=== PATIENT | male | born 1945 | race Caucasian/White ===

== ENCOUNTER 2021-10-19 12:58 | Emergency (ER) | payer MEDICARE, BC, SELFPAY ==
--- NOTE | 2021-10-19 14:07 | ED.GENADULT ---
HPI - General Adult General Chief complaint: Weakness Stated complaint: Vomitting,weakness,cough,headache Time Seen by Provider: 10/19/21 13:59 History of Present Illness HPI narrative: This 76-year-old male comes in with weakness, nausea, vomiting, and diarrhea. These symptoms started this morning but he states that he has not been feeling right over the past week or so. He states that he does have an occasional cough and that has triggered some vomiting at times. He did have some chills this morning but his temperature was measured and it was normal. He has decreased appetite over these past couple days also. Related Data Previous Rx's Medication Instructions Recorded amlodipine 5 mg tablet 5 mg PO QDAY Hypertension #90 tabs 09/18/21 levofloxacin 500 mg tablet 500 mg PO DAILY 10 days #10 tabs 10/19/21 ondansetron 4 mg disintegrating 4 mg PO Q6-8H PRN nausea and 10/19/21 tablet vomiting #14 tabs Allergies Allergy/AdvReac Type Severity Reaction Status Date / Time No Known Drug Allergies Allergy Verified 10/19/21 11:05 Review of Systems Status of ROS: Reports: 10 or more systems reviewed and unremarkable except as noted in History and below Narrative: Constitutional: No fevers, no weight gain or loss. Eyes: No discharge. No vision changes. HENT: No congestion, no sore throat, no ear pain. Cardiovascular: No chest pain, no palpitations. Respiratory: No shortness of breath, no wheezes, no cough. Gastrointestinal: No abdominal pain. Vomiting and diarrhea. Genitourinary: No dysuria, no hematuria. Musculoskeletal: Normal range of motion. Skin: No rashes, no pruritis. Neurological: No dizziness, sensory change, speech change. Generalized weakness. No unilateral weakness. Endo/Heme/Allergies: No bruising or bleeding. No polydipsia. Pysch: no suicidality, no anxiety, no insomnia. All other systems reviewed and are negative. [facility] Medical History (Updated 10/19/21 @ 18:28 by Quinton Sharma MD) Chest pain Hypertension Surgical History (Updated 10/19/21 @ 11:05 by Larry Gutierrez) History of cholecystectomy (11/03/09) History of tonsillectomy (11/03/09) Social History Smoking Status: Never smoker Do you use any of these nicotine containing products: None Second hand tobacco smoke exposure: No How often do you have a drink containing alcohol: never How often do you have six or more drinks on one occasion: Never AUDIT-C Alcohol total score: 0 Non-prescribed substance use: denies use Exam Narrative: Exam Narrative: Constitutional: Well-developed, well-nourished, no acute distress. HEENT: Normocephalic, atraumatic. Neck: Normal range of motion. Nontender. Supple. Heart: Regular. No murmurs. Normal rate. Intact distal pulses. Lungs: Clear to auscultation. No chest discomfort. No wheezes, rhonchi, or rales. Abdomen: Normal bowel sounds. Nontender. No rebound tenderness. Genitalia: Deferred. Back: No midline tenderness. Normal range of motion. Extremities: Normal range of motion. No injury. Skin: Intact. No rash. Warm. No erythema or pallor. Neurologic: No altered sensation. No weakness. Alert and oriented. Psychiatric: No suicidality. No anxiety or depression. No insomnia. Nursing notes and vitals signs are reviewed. Medical Decision Making MDM Narrative Medical decision making narrative: This patient comes in reporting generalized malaise with vomiting and diarrhea and weakness. These symptoms were rather mild in the past but became significantly worse today. An IV was established where he received a L of normal saline. Lab results returned with a significant elevation of his white count with a left shift. A CT scan of the abdomen and pelvis was then completed which does show sign of some inflammation around the prostate indicating possible prostatitis or a colitis or enteritis. I did order a he stool culture for Clostridium difficile. The patient has not provided a sample. He is feeling better and sitting up ready to go home. He did receive a prescription for Levaquin and Zofran. He is encouraged to bring in a stool sample as this may for further guide his treatment. He is instructed to follow-up with his primary physician this week or return if worsening symptoms happen. Lab Data Labs: Lab Results 10/19/21 10/19/21 10/19/21 Range/Units 14:15 14:28 14:28 WBC 22.53 H (4.50-11.00) K/uL RBC 4.58 (4.30-5.90) m/uL Hgb 14.0 (13.5-17.5) gm/dL Hct 40.9 (37.0-53.0) % MCV 89 (80-100) fL MCH 31 (26-34) pg MCHC 34 (32-36) gm/dL RDW Coeff of Melba 12.4 (11.5-15.5) % Plt Count 213 (140-440) K/uL Neut % (Auto) 89.2 H (42.0-72.0) % Lymph % (Auto) 3.2 L (20-44) % [place]ford % (Auto) 6.3 (0.0-11.0) % Eos % (Auto) 0.0 (0.0-7.0) % Baso % (Auto) 0.1 (0.0-3.0) % Neut # (Auto) 20.10 H (1.7-7.0) K/uL Lymph # (Auto) 0.70 L (0.90-2.90) K/uL Woodford # (Auto) 1.40 H (0.00-0.90) K/UL Eos # (Auto) 0.00 (0.00-0.50) K/uL Baso # (Auto) 0.00 (0.00-0.30) K/uL Abs Immat Gran (auto) 0.26 (0.00-0.30) K/uL Sodium 135 (135-149) mmol/L Potassium 3.7 (3.6-5.1) mmol/L Chloride 102 (96-114) mmol/L Carbon Dioxide 24 (20-32) mmol/L BUN 20 (7-30) mg/dL Creatinine 0.9 (0.5-1.5) mg/dL Estimated GFR 87 ml/min Glucose 166 H (60-115) mg/dL Calcium 8.5 (8.4-10.6) mg/dL SARS-CoV-2 (PCR) Negative SARS-CoV-2 (Negative) Influenza Type A (PCR) Negative PCR FLU A (Negative) Influenza Type B (PCR) Negative PCR FLU B (Negative) Imaging Data CT scan - abdomen: Radiologist's impression: 1. Periprostatic inflammatory changes, concerning for prostatitis. 2. There also pericystic inflammatory changes, perirectal inflammatory changes, and prominent nondilated loops of fluid-filled small bowel in the pelvis. These may be reactive secondary to prostatic inflammation versus separate cystitis and enteritis/colitis processes. 3. Prostatomegaly. Correlate with serum PSA. Discharge Plan Discharge Clinical Impression: Colitis, Leukocytosis Condition: Improved Instructions: Colitis (ED) Additional Instructions: Take medication as prescribed. Returned with stool sample for evaluation. Follow-up with primary physician this week or return if worsening symptoms occur. Prescriptions: New ondansetron 4 mg tablet,disintegrating 4 mg PO Q6-8H PRN (Reason: nausea and vomiting) Qty: 14 0RF levofloxacin 500 mg tablet 500 mg PO DAILY 10 Days Qty: 10 0RF No Action amlodipine 5 mg tablet 5 mg PO QDAY Qty: 90 0RF Follow Up/Referrals: Basilio Aguirre MD [Primary Care Provider] - Stand Alone Forms: [employer] Info Instructions
[2021-10-19 14:35] LABS: Basophils Percent Auto 0.1 % (0.0-3.0); Hematocrit 40.9 % (37.0-53.0); Immature Granulocytes Abs Auto 0.26 K/uL (0.00-0.30); Lymphocytes Percent Auto 3.2 % (20-44); Mean Corpuscular HGB Conc 34 gm/dL (32-36); Mean Corpuscular Hemoglobin 31 pg (26-34); Mean Corpuscular Volume 89 fL (80-100); Monocytes Percent Auto 6.3 % (0.0-11.0); Neutrophils Percent Auto 89.2 % (42.0-72.0); Platelet Count* 213 K/uL (140-440); RDW Coefficient of Variation % 12.4 % (11.5-15.5); Red Blood Count 4.58 m/uL (4.30-5.90); White Blood Count* 22.53 K/uL (4.50-11.00)
[2021-10-19] MEDS: ONDANSETRON 2 MG/ML inj 4 MG IVP (14:48)
[2021-10-19] MEDS: 0.9 % SODIUM CHLORIDE 1000 ml 1,000 ML IV (14:49)
[2021-10-19 14:57] LABS: Slide Review Reflex No
[2021-10-19 15:08] LABS: Chloride* 102 mmol/L (96-114); Potassium* 3.7 mmol/L (3.6-5.1); Sodium* 135 mmol/L (135-149)
[2021-10-19 15:11] LABS: Blood Urea Nitrogen* 20 mg/dL (7-30); Carbon Dioxide* 24 mmol/L (20-32); Creatinine* 0.9 mg/dL (0.5-1.5); Estimated Glomerular Filt Rate 87 ml/min
[2021-10-19 15:12] LABS: Calcium* 8.5 mg/dL (8.4-10.6); Glucose* 166 mg/dL (60-115)
[2021-10-19 15:14] LABS: PCR FLU A Negative PCR FLU A (Negative); PCR FLU B Negative PCR FLU B (Negative)
[2021-10-19 15:24] LABS: SARS PCR* Negative SARS-CoV-2 (Negative)
--- NOTE | 2021-10-19 15:35 | CRLHL7_ITS ---
For Patients: As a result of the Century Cures Act, medical imaging exams and procedure reports are released immediately into your electronic medical record. You may view this report before your referring provider. If you have questions, please contact your health care provider. INDICATION: Abdominal pain, leukocytosis, diarrhea. TECHNIQUE: CT abdomen and pelvis acquired with 99 mL Isovue 370 contrast. COMPARISON: None. FINDINGS: Lower chest: Scattered bibasilar subsegmental atelectasis. No focal consolidation Liver: Too small to characterize hypodense hepatic lesions, likely benign in the absence of a known malignancy. Gallbladder and bile ducts: Postcholecystectomy. Pancreas: Mild atrophy. Spleen: Unremarkable. Splenule is noted. Adrenal glands: Unremarkable. Kidneys: Kidneys enhance symmetrically, without hydronephrosis. Too small to characterize hypodense right renal lesions. Retroperitoneum: No lymphadenopathy. Bowel and mesentery: Mild perirectal inflammatory changes. Few nondilated loops of fluid-filled small bowel in the pelvis. No significant ascites. No pneumoperitoneum. Normal appendix. Bladder: Mild pericystic inflammatory changes. Reproductive organs: Prostatomegaly. Periprostatic inflammatory changes. Pelvic lymph nodes: No lymphadenopathy. Vessels: Atherosclerotic calcifications. Abdominal wall: No acute abdominal wall abnormality. Bones: Multilevel degenerative changes of the spine. No suspicious/aggressive focal osseous lesion. IMPRESSION: 1. Periprostatic inflammatory changes, concerning for prostatitis. 2. There also pericystic inflammatory changes, perirectal inflammatory changes, and prominent nondilated loops of fluid-filled small bowel in the pelvis. These may be reactive secondary to prostatic inflammation versus separate cystitis and enteritis/colitis processes. 3. Prostatomegaly. Correlate with serum PSA. Please note that all CT scans at this facility use dose modulation, iterative reconstruction, and/or weight-based dosing when appropriate to reduce radiation dose to as low as reasonably achievable. Dictated by Bimal Mora MD @ 10/19/2021 5:44:12 PM (Electronically Signed)
[2021-10-19] MEDS: levoFLOXacin 500 MG TABLET PO (18:48)
== END 2021-10-19 19:25 | disposition home or self-care (01) ==
PROVIDERS: Emergency Provider Emergency Medicine Emergency Medical Services; PCP Internal Medicine
DX: K52.9 Noninfective gastroenteritis and colitis, unspecified (principal)
CPT/HCPCS: 36415; 74177; 80048; 85025; 87493; 87502; 87635; 96374; 99284; 99285; A9270; J2405; J7030; Q9967

== ENCOUNTER 2021-11-16 09:41 | Outpatient (CLI) | payer MEDICARE, BC, SELFPAY ==
--- OUTSIDE RECORDS SUMMARY | 2021-11-16 07:50 | XMS_ITS | Clinical Summary ---
:1945 Author Organization [employer] [facility] [facility] [place] [address] Care Team Providers Name Role Phone Basilio Aguirre MD Primary Care Provider Allergies No known active allergies Medications Medication Sig Dispensed Refills Start Date End Date Status lisinopril (PRINIVIL; Take 1 tablet 0 04/25/2012 Active ZESTRIL) 10 mg tablet by mouth once daily. aspirin enteric coated 81 Take 1 tablet 0 04/25/2012 Active mg tablet by mouth once daily with a meal. fish oil-omega-3 fatty Take 2 0 04/25/2012 Active acids (FISH OIL) capsules by 1,200-360 mg cap mouth once daily. tamsulosin (FLOMAX) 0.4 Take 1 capsule 0 04/25/2012 Active mg capsule by mouth once daily after a meal. glucosamine-chondroitin, Take 1 capsule 90 capsule 11 3 Active 500-400 mg, (COSAMIN DS by mouth 3 500/400) 500-400 mg cap times daily. ondansetron (ZOFRAN) 4 mg Take 4 mg by 0 Active tablet mouth every 6 hours if needed for Nausea/Vomitin g. metFORMIN (GLUCOPHAGE) 3 03/14/2018 Active 500 mg tablet nitroglycerin (NITROSTAT) 0 03/10/2018 Active 0.4 mg sublingual tablet medication order CHANGE 30 NO_MATCH 2 11/05/2019 Active composerIndications: DIRECTED Other urethral bulbous stricture, male rosuvastatin (CRESTOR) 5 Take 1 tablet 90 tablet 3 01/22/2020 Active mg tabletIndications: by mouth at Pure hypercholesterolemia bedtime. amLODIPine (NORVASC) 5 mg TAKE ONE 90 Tablet 2 06/29/2020 Active tabletIndications: HTN TABLET BY (hypertension) MOUTH ONE TIME DAILY oxybutynin XL (DITROPAN Take 1 Tablet 30 Tablet 11 08/17/2020 Active XL) 5 mg CR (5 mg) by tabletIndications: mouth once Urinary frequency daily. medication order Coloplast 14 30 Each 11 02/15/2021 Active composerIndications: Fr straight Other urethral bulbous catheters. stricture, male Active Problems Problem Noted Date Other urethral bulbous stricture, male 01/01/2018 Kidney stones 01/01/2018 Epididymal cyst 03/20/2017 Benign non-nodular prostatic hyperplasia with lower ur inary tract symptoms 02/27/2016 Hydrocele, bilateral 01/11/2016 L5-S1 disk protrusion 05/16/2012 Spondylolisthesis of lumbar region 05/16/2012 Osteoarthritis of right hip 05/16/2012 Social History Tobacco Use Types Packs/Day Years Used Date Never Smoker Smokeless Tobacco: Never Used Tobacco Cessation: Counseling Given: Yes Alcohol Use Standard Drinks/Week Comments Yes 0 (1 standard drink = 0.6 oz pure alcoho l) rare Alcohol Habits Answer Date Recorded How often do you have a drink containing alcohol? Not asked How many drinks containing alcohol do you have on a typical Not asked day when you are drinking? How often do you have six or more drinks on one occasion? No t asked Comment: rare 12/24/2017 Sex Assigned at Date Recorded Not on file Obstetrics History Last Filed Vital Signs Vital Sign Reading Time Taken Comments Blood Pressure 122/80 02/15/2021 1:18 PM OFFICE SUPPORT CLERK Pulse 102 02/15/2021 1:18 PM OFFICE SUPPORT CLERK Temperature 36.9 ??C (98.4 ??F) 02/12/2018 11:17 AM OFFICE SUPPORT CLERK Respiratory Rate 16 08/17/2020 12:45 PM CDT Oxygen Saturation 97% 02/15/2021 1:18 PM OFFICE SUPPORT CLERK Inhaled Oxygen Concentration - - Weight 100.4 kg (221 lb 6.4 oz) 02/15/2021 1:18 PM OFFICE SUPPORT CLERK Height 188 cm (6' 2) 12/27/2017 10:06 AM CDT Body Mass Index 28.43 12/27/2017 10:06 AM CDT Plan of Treatment Health Maintenance Due Date Last Done Comments COVID-19 vaccine series (#1) 04/05/1946 Tdap 10/03/1954 Depression screening for age 12+ 1955 BMI (ht and wt on same day) for age 18+ 10/03/1961 Hepatitis C screening for age 18-79 10/03/1961 Tetanus booster 1963 Zoster (shingles) series for age 50+ (1 of 2) 10/03/1993 Medicare Wellness for age 65+ 10/03/2008 Pneumococcal series for age 65+ (1 - PCV) 10/03/2008 Influenza for age 65+ 11/09/2021 Medical Devices Implanted Type Area Microsoft Dynamics Developer Device Shelf Model / Identifier Expiration Serial / Date Lot Stent Uret [id number] Silhouette - [id number] Bilateral: A pplied Medical 05/21/2020 [id number] / Implanted: Qty: 2 on 12/27/2017 by Harry Medeiros MD at [facility] [employer] / [id number] Results Not on filefrom Last 3 Months Insurance Payer Benefit Plan / Subscriber ID Effective Dates Phone Addre ss Type Group MEDICARE PART A MEDICARE PART A [id number] 2008-Presen ATTN: CLAIMS - HB USE ONLY HB ONLY t [address] [place] [address] MEDICARE PART B MEDICARE PART B [id number] 2008-Presen ATTN: CLAIMS - HB USE ONLY HB ONLY t [address] [place] [address] BLUE CROSS [place] BLUE CROSS [id number] 2016-Presen [address] [address] [place] [address] [place], [place] [id number] BLUE CROSS BLUE CROSS [id number] 2016-[place] [address] [address] [address] [place], [place] [id number] Advance Directives Latest Code Status on File Code Status Date Activated Date Inactivated Comments Full Code 12/27/2017 9:18 AM 12/27/2017 3:55 PM Care Teams Parachute Taper Relationship Specialty Start Date End Date Basilio Aguirre MD PCP - General 04/25/121999 [place] [id number]
[2021-11-16 10:21] LABS: Cholesterol* 127 mg/dL (90-199); HDL Cholesterol* 33 mg/dL (>=40); LDL Cholesterol Calculated 61 mg/dL (<100); Triglycerides* 167 mg/dL (40-149)
== END 2021-11-16 09:42 | disposition home or self-care (01) ==
PROVIDERS: PCP Internal Medicine; Visit Provider Internal Medicine
DX: I10 Essential (primary) hypertension (principal)
CPT/HCPCS: 80061

== ENCOUNTER 2021-12-14 13:03 | Outpatient (CLI) | payer MEDICARE, BC, SELFPAY ==
--- OUTSIDE RECORDS SUMMARY | 2021-12-14 13:34 | XMS_ITS | Clinical Summary ---
:1945 Author Organization [employer] [facility] [employer] [place] [address] Care Team Providers Name Role Phone Basilio [...] Comments Blood Pressure 122/80 02/15/2021 1:18 PM ENGLISH LANGUAGE LEARNER TEACHER Pulse 102 02/15/2021 1:18 PM ENGLISH LANGUAGE LEARNER TEACHER Temperature 36.9 ??C (98.4 ??F) 02/12/2018 11:17 AM ENGLISH LANGUAGE LEARNER TEACHER Respiratory Rate 16 08/17/2020 12:45 PM CDT Oxygen Saturation 97% 02/15/2021 1:18 PM ENGLISH LANGUAGE LEARNER TEACHER Inhaled Oxygen Concentration - - Weight 100.4 kg (221 lb 6.4 oz) 02/15/2021 1:18 PM ENGLISH LANGUAGE LEARNER TEACHER Height 188 cm (6' 2) 12/27/2017 10:06 [...] 65+ 11/09/2021 Medical Devices Implanted Type Area Fiscal Manager Device Shelf Model / Identifier Expiration Serial / Date Lot Stent Uret [id number] Silhouette - [id number] Bilateral: A pplied Medical 05/21/2020 [id number] / Implanted: Qty: 2 on 12/27/2017 by Harry Medeiros MD at [facility] [employer] / [id number] Results Not on filefrom Last 3 Months Insurance Payer Benefit Plan / Subscriber ID Effective Dates Phone Addre ss Type Group MEDICARE PART A MEDICARE PART A [id number] 2008-Presen ATTN: CLAIMS - HB USE ONLY HB ONLY t [address] [place] [address] MEDICARE PART B MEDICARE PART B [id number] 2008-Presen ATTN: CLAIMS - HB USE ONLY HB ONLY t [address] [place] [address] [place]OSS [place] BL[place]OSS [id number] 2016-Presen [address] [address] [address] [place] [address] [place], [place] [id number] BLUE CROSS BL[place]OSS [id number] 2016-[place] [address] [address] [address] [place] [id number] Advance Directives Latest Code Status on File Code Status Date Activated Date Inactivated Comments Full Code 12/27/2017 9:18 AM 12/27/2017 3:55 PM Care Teams Pre Press Manager Relationship Specialty Start Date End Date Basilio Aguirre MD PCP - General 04/25/121999 [place] [id number]
[2021-12-14 14:31] LABS: Albumin* 4.9 g/dL (3.3-5.0); Chloride* 104 mmol/L (96-114); Sodium* 141 mmol/L (135-149)
[2021-12-14 14:32] LABS: Potassium* 4.3 mmol/L (3.6-5.1)
[2021-12-14 14:34] LABS: Alkaline Phosphatase* 70 U/L (40-150); Aspartate Amino Transferase* 31 U/L (12-35); Bilirubin Total* 0.7 mg/dL (0.1-1.5); Blood Urea Nitrogen* 15 mg/dL (7-30); Carbon Dioxide* 24 mmol/L (20-32); Creatinine* 0.8 mg/dL (0.5-1.5); Estimated Glomerular Filt Rate 91 ml/min; Total Protein* 7.7 g/dL (6.0-8.3)
[2021-12-14 14:35] LABS: Alanine Aminotransferase* 29 U/L (4-50); Calcium* 9.8 mg/dL (8.4-10.6); Glucose* 107 mg/dL (60-115)
[2021-12-14 14:41] LABS: NT Pro B Type NatriureticPept* 137 PG/mL (0-450)
== END 2021-12-14 13:04 | disposition home or self-care (01) ==
PROVIDERS: PCP Internal Medicine; Visit Provider Internal Medicine
DX: R06.02 Shortness of breath (principal)
CPT/HCPCS: 80053; 83880

== ENCOUNTER 2021-12-25 13:37 | Outpatient (CLI) | payer MEDICARE, BC, SELFPAY ==
--- OUTSIDE RECORDS SUMMARY | 2021-12-25 13:40 | XMS_ITS | Clinical Summary ---
:1945 Author Organization [employer] [facility] [employer] [facility] [place] [address] Care Team Providers Name Role Phone Basilio [...] Comments Blood Pressure 122/80 02/15/2021 1:18 PM MARKER ASSEMBLER Pulse 102 02/15/2021 1:18 PM MARKER ASSEMBLER Temperature 36.9 ??C (98.4 ??F) 02/12/2018 11:17 AM MARKER ASSEMBLER Respiratory Rate 16 08/17/2020 12:45 PM CDT Oxygen Saturation 97% 02/15/2021 1:18 PM MARKER ASSEMBLER Inhaled Oxygen Concentration - - Weight 100.4 kg (221 lb 6.4 oz) 02/15/2021 1:18 PM MARKER ASSEMBLER Height 188 cm (6' 2) 12/27/2017 10:06 AM CDT Body Mass Index 28.43 12/27/2017 10:06 AM CDT Plan of Treatment Upcoming Encounters Date Type Specialty Care Team Description 12/25/2021 Orders Only Health Maintenance Due Date Last Done Comments [...] 65+ 11/09/2021 Medical Devices Implanted Type Area District Plant Superintendent Device Shelf Model / Identifier Expiration Serial / Date Lot Stent Uret [id number] Silhouette - [id number] Bilateral: A pplied Medical 05/21/2020 [id number] / Implanted: Qty: 2 on 12/27/2017 by Harry Medeiros MD at [facility] [employer] / [id number] Results Not on filefrom Last 3 Months Insurance Payer Benefit Plan / Subscriber ID Effective Dates Phone Addre ss Type Group MEDICARE PART A MEDICARE PART A [id number] 2008-Presen ATTN: CLAIMS - HB USE ONLY HB ONLY t [address] [place] [address] MEDICARE PART B MEDICARE PART B [id number] 2008-Presen ATTN: CLAIMS - HB USE ONLY HB ONLY t [address] [place] [address] [place]UE [place]OSS [place] BL[place]OSS [id number] 2016-Presen [address] [address] [place] [address] [place], [place] [id number] [place]OSS [id number] 2016[place] [address] [address] [address] [place], [place] [id number] Advance Directives Latest Code Status on File Code Status Date Activated Date Inactivated Comments Full Code 12/27/2017 9:18 AM 12/27/2017 3:55 PM Care Teams Assorter Relationship Specialty Start Date End Date Basilio Aguirre MD PCP - General 04/25/121999 [place] [address]
== END 2021-12-25 13:38 | disposition home or self-care (01) ==
LOC: RAD 13:38
PROVIDERS: PCP Internal Medicine; Visit Provider Internal Medicine
DX: I10 Essential (primary) hypertension (principal)
CPT/HCPCS: 93306

== ENCOUNTER 2022-08-29 06:22 | Day surgery (SDC) | payer MEDICARE, BC, SELFPAY ==
[2022-08-29] VITALS (16 sets, daily range): BP systolic 101–136; BP diastolic 56–83; PULSE 58–73; RESP 14–18; TEMP 35.9–36.8; O2SAT 92–98; BMI 25.4
[2022-08-29] MEDS: LACTATED RINGERS 1000 ML 1,000 ML 100 ML IV ×2 (07:15→09:11)
[2022-08-29] MEDS: SODIUM CHLORIDE 0.9 % (FLUSH) 10 ML SYRINGE IVF (07:15)
--- NOTE | 2022-08-29 07:29 | SUR.PREOP ---
TIME?OUT:?0729 PT/RN/MDA?VERIFICATION?OF?SURGICAL?SITE Right Shoulder,?PROCEDURE Supraclavicular block,?AND?CONSENT OBTAINED?PRIOR?TO?INVASIVE?PROCEDURE.
[2022-08-29] MEDS: MIDAZOLAM HCL 1 MG/ML inj IVP (07:30)
[2022-08-29] MEDS: fentaNYL 100 MCG/2 ML inj IVP (07:30)
--- NOTE | 2022-08-29 07:40 | W.PM.NB ---
Nerve Block Nerve Block Time Seen by Provider: 07:35 Date Seen: 08/29/22 Type of block requested by surgeon for post-operative analgesia: supraclavicular Side: right Time out performed: Yes Verification of patient name: Yes Verification of date of : Yes Site marking: site marked Name of person performing procedure: René Amaral Continuous monitoring Was continuous monitoring of O2 sat, B/P, ekg monitor tech, recorded every 15 minutes?: Yes Procedure Ultrasound guided. Images saved: Yes Medications given in 5ml increments after negative aspiration: Ropivicaine %: 0.5 mL: 20 Decadron (mg): 10 Precedex (mcg): 20 Patient tolerated procedure well: Yes Block Charges Block Charge (with Pro Fee): Brachial Plexus Use of Ultrasound Machine for Block: Yes- US Guidance/pain block
[2022-08-29] MEDS: CEFAZOLIN 2 GM in 0.9 % SODIUM CHLORIDE Mini-bag 100 ML IVPB (08:15)
[2022-08-29] MEDS: EPINEPHrine 1 MG in SODIUM CHLORIDE IRRIG SOLUTION 3,000 ML 9003 MG IRRIGATION ×4 (08:25→10:07)
--- NOTE | 2022-08-29 10:21 | W.ANESCHARGE ---
Anesthesia Charges Start Date/Time Anesthesia Start Date: 08/29/22 Anesthesia Start Time: 08:06 Stop Date/Time Anesthesia Stop Date: 08/29/22 Anesthesia Stop Time: 10:21
--- NOTE | 2022-08-29 11:00 | P.ORPRC_ITS ---
Procedure Note Date of procedure: 08/29/22 Procedure: PREOPERATIVE DIAGNOSES: 1. Right shoulder rotator cuff tear-full thickness supraspinatus and anterior portion infraspinatus with retraction to the mid humeral and delamination 2. Right shoulder AC degenerative joint disease, primary, moderate-severe 3. Right shoulder long head biceps tendinopathy with low-grade partial- thickness tear 4. Right shoulder subacromial impingement syndrome. POSTOPERATIVE DIAGNOSES: 1. Right shoulder rotator cuff tear-full thickness supraspinatus and anterior portion infraspinatus with retraction to the mid humeral and delamination 2. Right shoulder AC degenerative joint disease, primary, moderate-severe 3. Right shoulder long head biceps tendinopathy without significant tearing 4. Right shoulder subacromial impingement syndrome. NAME OF OPERATION: 1. Right shoulder arthroscopic rotator cuff repair -full thickness supraspinatus and anterior portion infraspinatus 2. Right shoulder arthroscopic distal clavicle excision 3. Right shoulder arthroscopic bursectomy, subacromial decompression/partial ac romioplasty. SURGEON: Kenneth Maurer MD CERTIFIED MASSAGE THERAPIST: Azam Terrell PA-C. Of note, a skilled assistant associate full professor was critical for this case to aide in patient positioning, suture manipulation, arm positioning, instrument positioning, and closure. ANESTHESIA: General plus preoperative supraclavicular block. EBL: 25 mL IMPLANTS: Arthrex 4.75 mm BioComposite knotless SwiveLock suture anchor (x2); 5.5 mm BioComposite SwiveLock suture anchor (x2) COMPLICATIONS: None evident INDICATIONS: The patient is a pleasant, 76-year-old male who has experienced right shoulder pain that has been increasing in recent time. Physical exam and imaging were consistent with a rotator cuff tear. Given their findings, as well as the weakness and pain, and inadequate response to nonoperative management, recommendation was made for surgery. FINDINGS: Exam under anesthesia revealed stable shoulder with excellent range of motion. The diagnostic arthroscopy revealed relatively healthy chondral surfaces of the glenohumeral joint. The Subscapularis tendon was intact and with a healthy attachment. The long head of the biceps tendon was intact with no significant partial-thickness tearing. There is only mild erythema near its origin. The main tendon through the joint and down the groove that could be visualized had no other erythema. The superior rotator cuff tendon was found to be torn full-thickness through the entire supraspinatus and anterior portion of the infraspinatus with retraction to the mid head. There was delamination to the mid and posterior aspects as well which was addressed during the repair. The labrum was minimally frayed. No loose bodies were identified within the pouch or subscapularis recess. PROCEDURE: Following a thorough discussion of risks, benefits, and alternat andrea, consent was obtained and the right shoulder was marked. The patient was brought to the operating room and placed supine on the operating table. Induction of anesthesia was completed after preoperative supraclavicular block was administered in preop holding. Appropriate time out was performed identifying proper patient, site, and procedure. 2 g IV Ancef was administered within 1 hour of incision preoperatively. The right upper extremity was prepped and draped in the appropriate sterile fashion using ChloraPrep prep. This was after the patient was positioned in the beach chair with their head in neutral alignment and all bony prominences well padded. The shoulder was insufflated with 20mL of normal saline via an 18g spinal needle from a posterior approach. An 11 blade skin incision allowed a blunt trochar to be inserted and diagnostic arthroscopy to be performed with the findings as noted above. An anterior portal was established with an outside in technique. This allowed the probe to be inserted and confirm the diagnostic arthroscopic findings. Following this, the upper border subscapularis was probed and found to be stable. The biceps was also probed and found to be intact and stable not warranting intervention. Thereafter, the subacromial space was entered. Here, a complete bursectomy and partial acromioplasty/subacromial decompression was performed with a combination of radiofrequency ablator, the shaver, and a 5.5 mm bur. Additionally, distal clavicle excision was performed with the bur. 8 mm of distal clavicle was resected based on the with of our bur. Further inspection of the supraspinatus and infraspinatus rotator cuff was performed. This identified the tear as noted above. The margins of the tear were debrided, and the greater tuberosity was debrided with a combination of the apollo cautery, shaver, and bur on reverse setting. [After gentle decortication, a speed bridge configuration with a medial radha was engaged utilizing 4.75 mm BioComposite knotless SwiveLock suture anchors. After placing 2 medial anchors, the knotless mechanism was swapped/past and partial engaged. We then took a FiberTape from each anchor and placed into a lateral row anchor creating a speed bridge configuration. After securing the lateral row, the medial radha sutures were tightened with excellent medial footprint compression of 1 of the 2. The 2nd medial radha suture head more friction and did not slide as easy. It still was cinched down to a slightly lesser degree. Prior to anchor hook up driver removal, the eyelet sutures were tugged on for each anchor and found that the anchor had excellent stability within the bone. The shoulder was placed through range of motion and found to be stable. The rotator cuff was re-probed and found to be stable. Instruments were removed. Excess fluid was drained, closure performed with 4-0 Monocryl and Steri-Strips. Dressings were applied. Sling was applied. The patient was awoken from anesthesia and transferred to the PACU in stable condition. A skilled assistant associate full professor was critical for this case to aid in patient positioning, limb positioning, skill to manipulate arthroscopic instruments and camera, suture management, patient safety, and closure. PLAN: 1. Elbow, forearm, wrist and digit range of motion as tolerated. 2. Encouraged ice. 3. Percocet for pain as needed. 4. Sling at all times except for ROM and showering. 5. Follow up with PA visit in 1-2 weeks for wound check. Initiate physical therapy following that visit for passive range of motion. Initiate active assisted range of motion at 3-4 weeks. May do pendulums now.
== END 2022-08-29 12:47 | disposition home or self-care (01) ==
PROVIDERS: PCP Internal Medicine; Visit Provider Orthopaedic Surgery Sports Medicine
PROC: (CPT 29805; principal; 2022-08-29 08:00)
DX: M75.101 Unspecified rotator cuff tear or rupture of right shoulder, not specified as traumatic (principal); M19.011 Primary osteoarthritis, right shoulder; M75.21 Bicipital tendinitis, right shoulder; M75.41 Impingement syndrome of right shoulder; G89.18 Other acute postprocedural pain
CPT/HCPCS: 29827; 29826; 29824; 01630; 64415; 76942; 82962; C1713; J0171; J0330; J0690; J1100; J2250; J2370; J2405; J2704; J2710; J2795; J3010; J7120; L3670

== ENCOUNTER 2022-12-24 09:00 | Outpatient (RCR) | payer MEDICARE, BC, SELFPAY ==
--- NOTE | 2022-09-14 11:16 | PT.OPEX ---
PT [facility] Eval PT [facility] Out[facility] Eval Start: 09/14/22 07:46 Freq: Status: Active Protocol: Document 09/14/22 07:47 NANCY (Rec: 09/14/22 11:16 NANCY [id number]) E-signed By Yoana Mcnally, PT Physical Therapy Outpatient Evaluation Insurance Information Recert Due Date 12/09/22 Insurance Name Medicare B,Blue Cross/Blue Shield Medical Diagnosis Encounter for other orthopedic aftercare (s/p R RCR) Treating Diagnosis Right shoulder pain, limited shoulder ROM, gross UE weakness Referring MD Maurer Subjective Subjective Returns 2 weeks postoperative right shoulder arthroscopic RCR (x4 anchor supra, infra), AVIS, SHANTELLE (date of surgery 08/29). Patient notes pain was gradual over many years without any known injury. He had follow up with Azam SALVADOR, last week and was given the clearance for PROM starting now and AAROM starting at 3-4 weeks. Pain has been well managed now with OTC pain meds . He continues to be compliant with sling use. Has follow up with MD at 6 week halie PMH: arthritis, hypertension Pain Comments /10 worst Current Work Status Retired Occupation Retired Precautions Therapy Limitations/Systems Review Not Limited Objective Other/Pertinent Objective Supine UE ROM (R/L): significant muscle guarding -ER0: Neutral -Abd: 30 -FF: 30 Reports some numbness hypothenar eminence and occasionally into 4th/5th digit Incisions healing well: no signs of infection AROM and MMT deferred d/t s/p Functional Test Performed & Score QuickDASH -IE 70% Assessment Assessment/Impression Pt presents with signs and symptoms consistent with s/p R RCR. DOS: 08/29/22. Anticipated deficits/ impairments in pain, ROM, and strength. Pt would benefit from skilled PT interventions to facilitate return to PLOF and Reaching, lifting, pulling , pushing, pressing, dressing, bathing, sleeping with minimal pain. Primary Functional Limitations Reaching, lifting, pulling, pushing, pressing, dressing, bathing, sleeping Plan of Care Rehabilitation Potential Good Physical Therapy Goals Improve ER0 to 40 to improve ease of transfers and ADL's, by 6 weeks post op. Improve FF tolerance to increase ease of ADL's /daily care, by 6 weeks post op. Pt will tolerate gradual progression of AROM to facilitate progression through POC, by 8 weeks post op. Patient will exhibit full shoulder ROM, in order to facilitate greater ease with ADLs and progression through POC, by 12 weeks post op. Pt will exhibit RC and Scapular Stab strength of 5/5 to allow progression back to normal and desired activities without pain, by 20 weeks post op. Patient will be independent in self-management of shoulder and shoulder related symptoms, by 20 weeks post op. Treatment Plan/Direct Interventions Ice/Cold/Vasopneumatic,Joint Mobilization,Manual Therapy, Neuromuscular Re-ed,Self-Care/ Home Management,Therapeutic Activities,Therapeutic Exercises Frequency/Duration 1-2 times per week for 12 weeks with decreasing frequency up to 20 weeks Patient Will Be Discharged From Therapy Completion of LTG(s), Independent w/HEP, Independently Progressing Evaluation Billing Untimed Code Treatment Minutes 15 Complexity Low Certification Information Initial Certification Date 09/14/22 Ending Certification Date 12/09/22 Provider Signature Shows Agreement With POC & Medical Necessity Physician Signature & Date Requested Please Sign/Date Here Physician Comment/Change : Physician NPI Number #
== END 2023-04-09 11:05 | disposition home or self-care (01) ==
PROVIDERS: PCP Internal Medicine; Visit Provider Orthopaedic Surgery Sports Medicine
DX: M67.921 Unspecified disorder of synovium and tendon, right upper arm (principal); M19.011 Primary osteoarthritis, right shoulder; M75.101 Unspecified rotator cuff tear or rupture of right shoulder, not specified as traumatic; Z98.890 Other specified postprocedural states; Z74.09 Other reduced mobility; R29.898 Other symptoms and signs involving the musculoskeletal system; M25.511 Pain in right shoulder; Z51.89 Encounter for other specified aftercare
CPT/HCPCS: 97110; 97140; 97161

== ENCOUNTER 2023-08-22 07:25 | Outpatient (CLI) | payer MEDICARE, BC, SELFPAY ==
--- OUTSIDE RECORDS SUMMARY | 2023-08-25 19:38 | XMS_ITS | Clinical Summary ---
Author Organization [employer] [facility] [employer] [facility] Address [place], [place] [address] Care Team Providers Care Barrel Centerer Name Role Phone Basilio Aguirre MD Primary Care Provider Allergies No known active allergies Medications Medication Sig Dispensed Refills Start Date End Date Status lisinopril (PRINIVIL; ZESTRIL) 10 mg tablet Take 1 tablet by mouth once daily. 0 3 Active aspirin enteric coated 81 mg tablet Take 1 tablet by mouth once daily with a meal. 0 3 Active fish oil-omega-3 fatty acids (FISH OIL) 1,200-360 mg cap Take 2 capsules by mouth once daily. 0 3 Active tamsulosin (FLOMAX) 0.4 mg capsule Take 1 capsule by mouth once daily after a meal. 0 3 Active glucosamine-chondroitin, 500-400 mg, (COSAMIN DS 500/400) 500-400 mg cap Take 1 capsule by mouth 3 times daily. 90 capsule 11 3 Active ondansetron (ZOFRAN) 4 mg tablet Take 4 mg by mouth every 6 hours if needed for Nausea/Vomitin g. Active metFORMIN (GLUCOPHAGE) 500 mg tablet 3 9 Active nitroglycerin (NITROSTAT) 0.4 mg sublingual tablet 0 03/10/ 01 8 Active medication order composerIndications:Other urethral bulbous stricture, male CHANGE DIRECTED 30 NO_MATCH 2 0 Active rosuvastatin (CRESTOR) 5 mg tabletIndications:Pure hypercholesterolemia Take 1 tablet by mouth at bedtime. 90 tablet 3 0 Active amLODIPine (NORVASC) 5 mg tabletIndications:HTN (hypertension) TAKE ONE TABLET BY MOUTH ONE TIME DAILY 90 Tablet 2 1 Active oxybutynin XL (DITROPAN XL) 5 mg CR tabletIndications:Urinary frequency Take 1 Tablet (5 mg) by mouth once daily. 30 Tablet 11 1 Active medication order composerIndications:Other urethral bulbous stricture, male Coloplast 14 Fr straight catheters. 30 Each 11 1 Active Active Problems Problem Noted Date Diagnosed Date Other urethral bulbous stricture, male 8 Kidney stones 01/01/2018 Epididymal cyst 03/20/2017 Benign non-nodular prostatic hyperplasia with lower urinary tract symptoms 02/27/2016 Hydrocele, bilateral 01/11/2016 L5-S1 disk protrusion 05/16/2012 Spondylolisthesis of lumbar region 05/16/2012 Osteoarthritis of right hip 05/16/2012 Social History Tobacco Use Types Packs/Day Years Used Date Smoking Tobacco: Never Smokeless Tobacco: Never Tobacco Cessation:Counseling Given: Yes Alcohol Use Standard Drinks/Week Comments Yes 0 (1 standard drink = 0.6 oz pur e alcohol) rare Social Connections Answer Date Recorded Frequency of Communication with Friends and Fami ly Not on file 03/11/2021 Financial Resource Strain Answer Date R ecorded Difficulty of Paying Living Expenses Not on file 03/11/2021 Difficulty of Paying Living Expenses Not on file 03/11/2021 Sex and Gender Information Value Date Recorded Sex Assigned at Not on file Gender Identity Not on file Sexual Orientation Not on file Obstetrics History Last Filed Vital Signs Vital Sign Reading Time Taken Comments Blood Pressure 122/80 02/15/2021 1:18 PM DRUG SAFETY ASSOCIATE Pulse 102 02/15/2021 1:18 PM DRUG SAFETY ASSOCIATE Temperature 36.9 ??C (98.4 ??F) 02/12/2018 1 1:17 AM DRUG SAFETY ASSOCIATE Respiratory Rate 16 08/17/2020 12:4 5 PM CDT Oxygen Saturation 97% 02/15/2021 1:18 PM DRUG SAFETY ASSOCIATE Inhaled Oxygen Concentration - - Weight 100.4 kg (221 lb 6.4 oz) 02/15/2021 1:18 PM DRUG SAFETY ASSOCIATE Height 188 cm (6' 2) 12/27/2017 10:06 AM CDT Body Mass Index 28.43 12/27/2017 10:06 AM CDT Plan of Treatment Health Maintenance Due Date Last Done Comments Tdap 10/03/1956 Depression screening for age 12+ 1955 BMI (ht and wt on same day) for age 18+ 10/03/1961 Hepatitis C screening for age 18-79 10/03/1961 Tetanus booster 1963 Zoster (shingles) series for age 50+ (1 of 2) 10/03/18 94 Medicare Wellness for age 65+ 10/03/2008 Pneumococcal series for age 65+ (1 of 1 - PCV) 009 COVID-19 vaccine series ( - 2022- season) 3 Influenza for age 65+ 11/10/2023 Medical Devices Implanted Type Area Hooker Machine Tender Device Identifier Shelf Expiration Date Model / Serial / Lot Stent Uret [id number] Silhouette - [id number] Implanted:Qty: 2 on 12/27/2017 by Harry Brantley MD at [facility] Bilateral: U[employer] 05/21/2020 [id number] / / [id number] Advance Directives * Full Code (Latest Code Status on File) Date Activated Date Inactivated Comments 12/27/2017 9:18 AM 12/27/2017 3:55 PM Care Teams Barrel Centerer Relationship Specialty Start Date End Date Basilio Aguirre MD [address] [place] [address] PCP - General 04/25/12
== END 2023-08-22 07:26 | disposition home or self-care (01) ==
LOC: NFLDREF 08-25 19:37
PROVIDERS: PCP Internal Medicine; Referring Provider Internal Medicine; Visit Provider Internal Medicine
DX: E11.9 Type 2 diabetes mellitus without complications (principal); E78.5 Hyperlipidemia, unspecified; Z12.5 Encounter for screening for malignant neoplasm of prostate
CPT/HCPCS: 80053; 80061; G0103

== ENCOUNTER 2023-08-27 08:56 | Outpatient (CLI) | payer MEDICARE, BC, SELFPAY ==
--- OUTSIDE RECORDS SUMMARY | 2023-08-27 08:58 | XMS_ITS | Clinical Summary ---
Author Organization [employer] [facility] [employer] [facility] Address [place], [place] [address] Care Team Providers Care Tram Inspector Name Role Phone Basilio Aguirre MD Primary Care Provider [phone] Allergies No known active allergies Medications Medication [...] Comments Blood Pressure 122/80 02/15/2021 1:18 PM EPOXY FABRICATION SUPERVISOR Pulse 102 02/15/2021 1:18 PM EPOXY FABRICATION SUPERVISOR Temperature 36.9 ??C (98.4 ??F) 02/12/2018 1 1:17 AM EPOXY FABRICATION SUPERVISOR Respiratory Rate 16 08/17/2020 12:4 5 PM CDT Oxygen Saturation 97% 02/15/2021 1:18 PM EPOXY FABRICATION SUPERVISOR Inhaled Oxygen Concentration - - Weight 100.4 kg (221 lb 6.4 oz) 02/15/2021 1:18 PM EPOXY FABRICATION SUPERVISOR Height 188 cm (6' 2) 12/27/2017 10:06 [...] 65+ 11/10/2023 Medical Devices Implanted Type Area Practice Director Device Identifier Shelf Expiration Date Model / Serial / Lot Stent Uret [id number] Silhouette - [id number] Implanted:Qty: 2 on 12/27/2017 by Harry Brantley MD at [facility] Bilateral: U[employer] 05/21/2020 [id number] / / [id number] Advance Directives * Full Code (Latest Code Status on File) Date Activated Date Inactivated Comments 12/27/2017 9:18 AM 12/27/2017 3:55 PM Care Teams Tram Inspector Relationship Specialty Start Date End Date Basilio Aguirre MD [address] [place] [address] PCP - General 04/25/12
== END 2023-08-27 08:57 | disposition home or self-care (01) ==
LOC: NFLDREF 08:57
PROVIDERS: PCP Internal Medicine; Visit Provider Internal Medicine
DX: R53.83 Other fatigue (principal); Z13.29 Encounter for screening for other suspected endocrine disorder
CPT/HCPCS: 84443

== ENCOUNTER 2023-09-25 09:33 | Outpatient (CLI) | payer MEDICARE, BC, SELFPAY ==
--- OUTSIDE RECORDS SUMMARY | 2023-09-25 09:48 | XMS_ITS | Clinical Summary ---
Author Organization [employer] [facility] Address [place], [place] [address] Care Team Providers Care Medical Coordinator Pesticide Use Name Role Phone Basilio Aguirre MD Primary [...] Comments Blood Pressure 122/80 02/15/2021 1:18 PM MANAGER FUND Pulse 102 02/15/2021 1:18 PM MANAGER FUND Temperature 36.9 ??C (98.4 ??F) 02/12/2018 1 1:17 AM MANAGER FUND Respiratory Rate 16 08/17/2020 12:4 5 PM CDT Oxygen Saturation 97% 02/15/2021 1:18 PM MANAGER FUND Inhaled Oxygen Concentration - - Weight 100.4 kg (221 lb 6.4 oz) 02/15/2021 1:18 PM MANAGER FUND Height 188 cm (6' 2) 12/27/2017 10:06 [...] 65+ 11/10/2023 Medical Devices Implanted Type Area Mill Hand Device Identifier Shelf Expiration Date Model / Serial / Lot Stent Uret [id number] Silhouette - [id number] Implanted:Qty: 2 on 12/27/2017 by Harry Brantley MD at [facility] Bilateral: U[employer] 05/21/2020 [id number] / / [id number] Advance Directives * Full Code (Latest Code Status on File) Date Activated Date Inactivated Comments 12/27/2017 9:18 AM 12/27/2017 3:55 PM Care Teams Medical Coordinator Pesticide Use Relationship Specialty Start Date End Date Basilio Aguirre MD [address] [place] [address] PCP - General 04/25/12
--- NOTE | 2023-11-05 08:50 | W.PM.SLEEP ---
Sleep Study Details Details Interpreting Provider: Baorn Date of Sleep Study: 09/25/23 Sleep Study Details: STUDY TYPE:? Home unattended ? BMI:? Not record ORDERING PROVIDER:? Baron INDICATION:? Concern about sleep apnea ? SLEEP SUMMARY:? 452 minutes monitored RESPIRATORY SUMMARY:? AHI 7.2 per CMS guidelines Low oxygen 89 Snoring 96.5% PERIODIC LIMB MOVEMENTS OF SLEEP:? Not recorded CARDIAC:? Range 46-101, mean 59.2 IMPRESSION:? Mild obstructive sleep apnea without significant desaturations. RECOMMENDATION: If patient is symptomatic treatment would consist of CPAP or dental appliance.
== END 2023-09-25 09:34 | disposition home or self-care (01) ==
LOC: SLEEP 09:33
PROVIDERS: PCP Internal Medicine; Visit Provider Otolaryngology
DX: G47.33 Obstructive sleep apnea (adult) (pediatric) (principal)
CPT/HCPCS: 95806

== ENCOUNTER 2024-01-10 14:07 | Outpatient (CLI) | payer MEDICARE, BC, SELFPAY ==
--- OUTSIDE RECORDS SUMMARY | 2024-01-10 14:11 | XMS_ITS | Clinical Summary ---
Author Organization [email or web address] [facility] [employer] [facility] Address [place], [place] [address] Care Team Providers Care Edger Machine Setter Name Role Phone Basilio Aguirre MD Primary [...] Comments Blood Pressure 122/80 02/15/2021 1:18 PM RN MDS Pulse 102 02/15/2021 1:18 PM RN MDS Temperature 36.9 ??C (98.4 ??F) 02/12/2018 1 1:17 AM RN MDS Respiratory Rate 16 08/17/2020 12:4 5 PM CDT Oxygen Saturation 97% 02/15/2021 1:18 PM RN MDS Inhaled Oxygen Concentration - - Weight 100.4 kg (221 lb 6.4 oz) 02/15/2021 1:18 PM RN MDS Height 188 cm (6' 2) 12/27/2017 10:06 AM CDT Body Mass Index 28.43 12/27/2017 10:06 AM CDT Plan of Treatment Health Maintenance Due Date Last Done Comments Tdap 10/03/1956 Depression screening for age 12+ 1955 BMI (ht and wt on same day) for age 18+ 10/03/1961 Tetanus booster 1963 Zoster (shingles) series for age 50+ (1 of 2) 10/03/18 94 Medicare Wellness for age 65+ 10/03/2008 Pneumococcal series for age 65+ (1 of 1 - PCV) 009 RSV vaccine for adults or pr egnancy (1 - 1-dose 75+ series) 10/03/2018 COVID-19 vaccine series (2023- season) 4 Influenza for age 65+ 11/10/2023 Medical Devices Implanted Type Area Director Of Midwifery/Staff Midwife Device Identifier Shelf Expiration Date Model / Serial / Lot Stent Uret [id number] Silhouette - [id number] Implanted:Qty: 2 on 12/27/2017 by Harry Brantley MD at [facility] Bilateral: [employer] 05/21/2020 [id number] / / [id number] Advance Directives * Full Code (Latest Code Status on File) Date Activated Date Inactivated Comments 12/27/2017 9:18 AM 12/27/2017 3:55 PM Care Teams Edger Machine Setter Relationship Specialty Start Date End Date Basilio Aguirre MD [address] [place] [address] PCP - General 04/25/12
--- NOTE | 2024-01-10 14:30 | MR_ITS ---
[address] [address] Phone:?[phone] Fax:?[phone] Referring Physician Information: Kenneth Maurer M.D. [id number] [facility] [address] Phone:?[phone] Fax:?[phone] Patient:Venkat Lucio D.O.B:?1945 Sex:?Male Phone:?[phone] [facility] MRN:?[id number] Exam Date:?01/10/2024 EXAM: MRI of the LEFT SHOULDER, without contrast CLINICAL INFORMATION: Male, 78 years old, with left shoulder pain. INDICATION: Evaluate for rotator cuff tear. PRIOR SURGERY: None reported. PLAIN FILMS: None available. COMPARISONS: No prior MRIs available. TECHNICAL INFORMATION: Using a 1.5T MR scanner and a localizing surface coil: coronal obliques: PD, T2, STIR sagittal obliques: PD, T2 axials: PD, T2 SEDATION: None CONTRAST: None FINDINGS: Bones: Proximal humerus: No fracture or marrow edema/pathology. No humeral Hill-Sachs or reverse Hill-Sachs lesion/impaction or contusion. Glenoid: No fracture or marrow edema/pathology. No osseous Bankart lesion. Rotator cuff and muscles/tendons: Supraspinatus: Full-thickness, essentially full-width tear of supraspinatus, with tendon retraction to the mid humeral head. Grade 1 muscle atrophy. Infraspinatus: Moderate infraspinatus tendinopathy with a 1.2 x 1.6 cm area of partial-thickness articular surface and interstitial tearing involving approximately one third of the tendon thickness (sagittal T2 series 8 image 9 and coronal T2 series 7 image 7). Teres minor: No tendinopathy, tear or atrophy. Subscapularis: Mild tendinopathy of the superior distal subscapularis without tendon tear or muscle atrophy. Deltoid: No strain or atrophy. Coracoacromial arch: Acromion morphology: The acromion has type II morphology. No discrete subacromial osseous spur or os acromiale. Acromiohumeral space: The acromiohumeral space is within normal limits. Coracohumeral space: The coracohumeral space is within normal limits. Acromioclavicular joint: Joint: Mild AC joint arthropathy, without significant inferior osteophytosis or evidence of supraspinatus impingement. Ligaments: Coracoclavicular ligaments are intact. Bursae: Subacromial-subdeltoid: Mild-moderate subacromial-subdeltoid bursal fluid, which reflects accumulation from the full-thickness rotator cuff tear. Subcoracoid: No convincing subcoracoid bursal thickening/bursitis. Biceps tendon: The long head of the biceps tendon is present within the bicipital groove. Mild tendinopathy of the intra-articular biceps long head tendon, without split/tear. Glenohumeral joint: Effusion/cyst: No significant glenohumeral joint effusion. Articular cartilage: Humeral head: Mild thinning of the humeral head articular cartilage with mild inferomedial marginal osteophytosis. Glenoid: Mild thinning the glenoid articular cartilage, with mild marginal osteophytosis. Loose bodies: No discrete intra-articular body within the joint. Labrum:?Circumferential degeneration and fraying of the labrum, which is of doubtful clinical significance. Inferior glenohumeral ligament/axillary pouch:?Intact. The axillary pouch is normal in thickness and signal. No evidence of adhesive capsulitis or capsular injury. IMPRESSION: 1. Full-thickness, essentially full-width tear of supraspinatus, with tendon retraction to the mid humeral head and grade 1 muscle atrophy. 2. Moderate infraspinatus tendinopathy with a 1.2 x 1.6 m area of low- intermediate grade partial-thickness articular/interstitial tearing. 3. Mild subscapularis and biceps long head tendinopathy, without evidence of a tear or biceps radha injury. 4. Mild AC joint arthropathy without evidence of supraspinatus impingement. 5. Mild osteoarthritis of the glenohumeral joint. 6. Circumferential degeneration and fraying of the labrum, which is of doubtful clinical significance. BC Electronically signed on 01/13/2024 7:59:00 AM by Jered Silvestre M.D.
== END 2024-01-10 14:08 | disposition home or self-care (01) ==
LOC: MRI 14:09
PROVIDERS: PCP Internal Medicine; Visit Provider Orthopaedic Surgery Sports Medicine
DX: M25.512 Pain in left shoulder (principal); M75.102 Unspecified rotator cuff tear or rupture of left shoulder, not specified as traumatic; S46.812A Strain of other muscles, fascia and tendons at shoulder and upper arm level, left arm, initial encounter; M19.012 Primary osteoarthritis, left shoulder
CPT/HCPCS: 73221

== ENCOUNTER 2024-02-14 06:41 | Day surgery (SDC) | payer MEDICARE, BC, SELFPAY ==
[2024-02-14] VITALS (15 sets, daily range): BP systolic 102–130; BP diastolic 58–82; PULSE 48–84; RESP 16–24; TEMP 36.3–36.8; O2SAT 90–95; BMI 26.3
--- OUTSIDE RECORDS SUMMARY | 2024-02-14 06:45 | XMS_ITS | Clinical Summary ---
Author Organization [facility] Address [place], [place] [address] Care Team Providers Care Radiological Equipment Specialist Name Role Phone Basilio Aguirre MD Primary [...] Comments Blood Pressure 122/80 02/15/2021 1:18 PM INTELLIGENCE MANAGER Pulse 102 02/15/2021 1:18 PM INTELLIGENCE MANAGER Temperature 36.9 C (98.4 F) 02/12/2018 11:17 AM INTELLIGENCE MANAGER Respiratory Rate 16 08/17/2020 12:4 5 PM CDT Oxygen Saturation 97% 02/15/2021 1:18 PM INTELLIGENCE MANAGER Inhaled Oxygen Concentration - - Weight 100.4 kg (221 lb 6.4 oz) 02/15/2021 1:18 PM INTELLIGENCE MANAGER Height 188 cm (6' 2) 12/27/2017 10:06 [...] 65+ 11/10/2023 Medical Devices Implanted Type Area Set Up Mechanic Coil [employer] Device Identifier Shelf Expiration Date Model / Serial / Lot Stent Uret [id number] Silhouette - [id number] Implanted:Qty: 2 on 12/27/2017 by Harry Brantley MD at [facility] Bilateral: Ureter [employer] Neeta 05/21/2020 [id number] / / [id number] Advance Directives * Full Code (Latest Code Status on File) Date Activated Date Inactivated Comments 12/27/2017 9:18 AM 12/27/2017 3:55 PM Care Teams Radiological Equipment Specialist Relationship Specialty Start Date End Date Basilio Aguirre MD [address] [place] [address] PCP - General 04/25/12
--- NOTE | 2024-02-14 07:31 | W.PM.H&PU ---
History & Physical Update History & Physical Update H&P Reviewed and patient assessed: No changes noted
[2024-02-14] MEDS: LACTATED RINGERS 1000 ML 1,000 ML 100 ML IV (07:56)
[2024-02-14] MEDS: SODIUM CHLORIDE 0.9 % (FLUSH) 10 ML SYRINGE IVF (07:56)
--- NOTE | 2024-02-14 08:20 | SUR.PREOP ---
TIME?OUT:?0820 PT/Tarah Cook RN/Dr. Kedar MDA?VERIFICATION?OF?SURGICAL?SITE left shoulder,?PROCEDURE,?AND?CONSENT OBTAINED?PRIOR?TO?INVASIVE?PROCEDURE.
[2024-02-14] MEDS: MIDAZOLAM HCL 1 MG/ML inj IVP (08:21)
[2024-02-14] MEDS: fentaNYL 100 MCG/2 ML inj IVP (08:21)
[2024-02-14] MEDS: CEFAZOLIN 2 GM in 0.9 % SODIUM CHLORIDE Mini-bag 100 ML IVPB (09:20)
[2024-02-14] MEDS: EPINEPHrine 1 MG in SODIUM CHLORIDE IRRIG SOLUTION 3,000 ML 3001 MG IRRIGATION ×4 (09:33→10:26)
--- NOTE | 2024-02-14 10:02 | SUR.OPER ---
PATIENT QUESTIONS ANSWERED SATISFACTORILY PREOPERATIVELY. PATIENT BROUGHT TO OR #4 PER CART FOLLOWING THE BLOCK. Patient positioned supine on OR #3 bed for the intubation.? Perioperative team wrapped the right arm in a neutral position on the pt. abdomen with the drawsheet. Left arm elevated on an IV pole in a padded strap. Final approval of positioning by surgeon. CONTINUOUS IRRIGATION OF THE LEFT SHOULDER WITH MIXTURE OF 3000 NACL AND 1mg OF EPINEPHRINE DURING PROCEDURE.
--- NOTE | 2024-02-14 11:04 | P.ORPRC_ITS ---
Procedure Note Date of procedure: 02/14/24 Procedure: PREOPERATIVE DIAGNOSES: 1. Left shoulder rotator cuff tear - full-thickness supraspinatus 2. Left shoulder labral tearing near circumferentially 3. Left shoulder subacromial impingement syndrome. POSTOPERATIVE DIAGNOSES: 1. Left shoulder rotator cuff tear - full-thickness supraspinatus 2. Left shoulder labral tearing near circumferentially 3. Left shoulder long head biceps high-grade partial-thickness tearing 4. 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 A secondary grade 3 chondromalacia region with loose chondral flaps measuring 15 x 15 mm in the more central anterior aspect. 5. Left shoulder subacromial impingement syndrome. NAME OF OPERATION: 1. Left shoulder arthroscopic rotator cuff repair - full-thickness s upraspinatus 2. Left shoulder arthroscopic extensive glenohumeral debridement including biceps, labrum, and humeral chondral tissue. 3. Left shoulder arthroscopic bursectomy, subacromial decompression/partial acromioplasty. SURGEON: Kenneth Maurer MD NUCLEAR MEDICINE TECHNICIAN: Harry SOLANO. Of note, a skilled carpenter assistant installer was critical for this case to aide in patient positioning, suture manipulation, arm positioning, instrument positioning, and closure. ANESTHESIA: General plus preoperative supraclavicular block. EBL: 25 mL IMPLANTS: Arthrex 5.5 mm BioComposite corkscrew suture anchor (x2); Arthrex 5.5 mm BioComposite SwiveLock suture anchor (x2); COMPLICATIONS: None evident INDICATIONS: The patient is a pleasant, 78-year-old male who has experienced left shoulder pain that has been increasing in recent time. Physical exam and imaging were consistent with a rotator cuff tear. Given their findings, as well as the weakness and pain, and inadequate response to nonoperative management, recommendation was made for surgery. FINDINGS: Exam under anesthesia revealed stable shoulder with excellent range of motion. The diagnostic arthroscopy revealed grade 3 chondromalacia on the humeral head in 2 separate spots as noted above. The Subscapularis tendon was torn in the low-grade partial-thickness manner. Majority the tendon had excell ent attachment to the lesser tuberosity. The long head of the biceps tendon was torn and high-grade partial-thickness manner in the intra-articular portion just as it approached the bicipital groove and just slightly distal. The superior rotator cuff tendon was found to be torn full-thickness through the majority of the supraspinatus and anterior portion infraspinatus with 3 traction posterior r ow medially consistent with an L-shaped type tear.. The labrum was degenerated frayed/torn near circumferentially. No loose bodies were identified within the pouch or subscapularis recess. PROCEDURE: Following a thorough discussion of risks, benefits, and alternatives, consent was obtained and the left shoulder was marked. The patient was brought to the operating room and placed supine on the operating table. Induction of anesthesia was completed after preoperative supraclavicular block was administered in preop holding. Appropriate time out was performed identifying proper patient, site, and procedure. 2 g IV Ancef was administered within 1 hour of incision preoperatively. The left upper extremity was prepped and draped in the appropriate sterile fashion using ChloraPrep prep. This was after the patient was positioned in the beach chair with their head in neutral alignment and all bony prominences well padded. The shoulder was insufflated with 20mL of normal saline via an 18g spinal needle from a posterior approach. An 11 blade skin incision allowed a blunt trochar to be inserted and diagnostic arthroscopy to be performed with the findings as noted above. An anterior portal was established with an outside in technique. This allowed the probe to be inserted and confirm the diagnostic arthroscopic findings. The shaver was then inserted and allowed debridement of of the labrum near circumferentially, long head of biceps tendon which underwent a biceps tenotomy, and the loose chondral flaps on the humeral head around the grade 3 chondromalacia region. Again, the long of the biceps was released from the bicipital tuberosity for arthroscopic tenotomy. The stump was debrided with a shaver. Following this, the upper border subscapularis was probed and found this stable with only minimal low-grade partial-thickness tear of the far superior, deep surface. Thereafter, the subacromial space was entered. Here, a complete bursectomy and partial acromioplasty/subacromial decompression was performed with a combination of radiofrequency ablator, the shaver, and a 5.5 mm bur. Further inspection of the supraspinatus and infraspinatus rotator cuff was pe rformed. This identified the tear as noted above. The margins of the tear were debrided, and the greater tuberosity was debrided with a combination of the apollo cautery, shaver, and bur on reverse setting. After gentle decortication, 2 medial corkscrew anchors were placed. The double loaded anchor had all 4 tails passed from the anterior anchor. 2 of the 4 tails were passed from the posterior anchor. These were then tied to take the tension off. The tails were divided and brought to 5.5 mm corkscrew suture anchors laterally. Of note, a luggage tag type suture was utilized in the far posterior aspect and the far anterior aspect which were brought to a more anterior lateral anchor with excellent footprint compression against the greater tuberosity. The rotator cuff showed excellent reapproximation of the greater tuberosity with good security upon probing. Prior to anchor crew truck driver removal, the eyelet sutures were tugged on for each anchor and found that the anchor had excellent stability within the bone. The shoulder was placed through range of motion and found to be stable. The rotator cuff was re-probed and found to be stable. Instruments were removed. Excess fluid was drained, closure performed with 4-0 Monocryl and Steri-Strips. Dressings were applied. Sling was applied. The patient was awoken from anesthesia and transferred to the PACU in stable condition. A skilled carpenter assistant installer was critical for this case to aid in patient positioning, limb positioning, skill to manipulate arthroscopic instruments and camera, suture management, patient safety, and closure. PLAN: 1. Elbow, forearm, wrist and digit range of motion of operative extremity as tolerated. 2. Encouraged ice. 3. Oxycodone for pain as needed. 4. Sling at all times except for ROM and showering. 5. Follow up with PA visit in 1-2 weeks for wound check. Initiate physical therapy following that visit for passive range of motion to begin in approximately 3-4 weeks due to the large tear. Initiate active assisted range of motion at 6 weeks. Strengthening around 8+ weeks. May do pendulums now.
--- NOTE | 2024-02-14 11:22 | P.ANES_ITS ---
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
--- NOTE | 2024-02-14 11:25 | SUR.PHASEI ---
Patient came to PACU awake. No pain or nausea at this time.
--- NOTE | 2024-02-14 11:51 | SUR.PHASEI ---
Patient meets discharge criteria from PACU
== END 2024-02-14 13:00 | disposition home or self-care (01) ==
PROVIDERS: PCP Internal Medicine; Visit Provider Orthopaedic Surgery Sports Medicine
PROC: (CPT 29805; principal; 2024-02-14 08:45)
DX: M75.122 Complete rotator cuff tear or rupture of left shoulder, not specified as traumatic (principal); S46.112A Strain of muscle, fascia and tendon of long head of biceps, left arm, initial encounter; S43.432A Superior glenoid labrum lesion of left shoulder, initial encounter; M94.212 Chondromalacia, left shoulder; M75.42 Impingement syndrome of left shoulder
CPT/HCPCS: 29827; 29826; 29828; 29823; 01630; 99100; C1713; J0171; J0690; J1100; J2250; J2371; J2405; J2704; J2795; J3010; J7120; L3670

== ENCOUNTER 2024-02-28 08:15 | Outpatient (CLI) | payer MEDICARE, BC, SELFPAY | END 2024-02-28 08:16 | disposition home or self-care (01) | LOC: NFLDREF 23:55 | PROVIDERS: PCP Internal Medicine; Referring Provider Internal Medicine; Visit Provider Internal Medicine | DX: E11.9 Type 2 diabetes mellitus without complications (principal); E78.5 Hyperlipidemia, unspecified; I10 Essential (primary) hypertension; Z13.9 Encounter for screening, unspecified | CPT/HCPCS: 80053; 80061; 82043; 82570 ==

== ENCOUNTER 2024-06-22 12:30 | Outpatient (RCR) | payer MEDICARE, BC, SELFPAY ==
--- NOTE | 2024-03-06 14:16 | PT.OPEX ---
PT [place] Outpatient Eval PT [facility] Outpatient Eval Start: 03/06/24 12:55 Freq: Status: Active Protocol: Document 03/06/24 12:55 COLIN (Rec: 03/06/24 14:13 COLIN [id number]) E-signed By Millie Fox, PT Physical Therapy Outpatient Evaluation Insurance Information Recert Due Date 06/04/24 Insurance Name Medicare B Medical Diagnosis 1. Left shoulder arthroscopic rotator cuff repair - full- thickness supraspinatus 2. Left shoulder arthroscopic extensive glenohumeral debridement including biceps, labrum, and humeral chondral tissue. 3. Left shoulder arthroscopic bursectomy, subacromial decompression/partial acromioplasty. (02/14/24, Dr. Maurer) Treating Diagnosis L shoulder weakness, L shoulder impaired ROM Referring MD Dr. Maurer Subjective Preferred Name Derek Mackey 1. Left shoulder arthroscopic rotator cuff repair - full- thickness supraspinatus 2. Left shoulder arthroscopic extensive glenohumeral debridement including biceps, labrum, and humeral chondral tissue. 3. Left shoulder arthroscopic bursectomy, subacromial decompression/partial acromioplasty. (02/14/24, Dr. Maurer) Had R shoulder done 1.5 years ago and it healed up really well. He thinks he's healing up well this time. He golfed a lot up until 2 years ago. He is right handed. Pain Comments He has no pain, but some pain with a little twinge on ocassion. 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 [employer] Precautions Treatment Precautions/Contraindications PROM starting in approximately 3 weeks, AAROM 5 weeks postop , strengthening 2+ months postop all due to large tear size Objective Other/Pertinent Objective SHOULDER AROM (R) PROM L Flexion: R 142 L 68 Abduction: R 135 L 58 scaption Internal Rotation: R T12 L to abdomen External Rotation: R C6 L to 0 NECK/SHOULDER MMT: L shoulder not tested d/t post-op status Shoulder shrug: R 4+/5 Shoulder flexion: R 4+/5 L -/5 Shoulder abduction: R 4/5 L -/ 5 Shoulder External Rotation: R 4/5 L -/5 Shoulder Internal Rotation: R 5/5 L -/5 Elbow flexion: R 5/5 L -/5 Elbow extension R 5/5 L -/5 JOINT MOBILITY/PALPATION TX: PROM exercises, scap sets, UT stretch. STM to L UT in supine Assessment Assessment/Impression Pt is an 78 yr old male c a h/ o L RCR on 02/14/24 c SAD and arthroscopic clean up of labrum. He is R handed and functioning reasonably well. He is unable to actively use L arm at this time per post-op precautions. He will be progressed per protocol and gradual progression to strength given h/o full thickness supraspinatus tear and advanced age of patient. He overall has good posture and recovered well from R shoulder surgery a year ago. He is motivated to return to normal, active lifestyle. Primary Functional Limitations Use of L arm: dressing, transfers, reaching, pulling blankets, lifting groceries Plan of Care Rehabilitation Potential Good Physical Therapy Goals Pt will demonstrate ability to raise L arm to 150 degrees flexion in 10 weeks to access cupboards in home. Pt will raise 3# to 120 degrees s pain to allow functional lifting in home in 12 weeks. 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 Pt will report no pain with donning coat in 10 weeks. Pt will demonstrate ability to carry 15# at side s pain in 12 weeks for carrying groceries. Treatment Plan/Direct Interventions Electrical Stimulation,Ice/ Cold/Vasopneumatic,Manual Therapy,Neuromuscular Re-ed, Self-Care/Home Management, Therapeutic Activities, Therapeutic Exercises, Ultrasound Frequency/Duration 2x/week for 12 weeks Patient Will Be Discharged From Therapy Completion of LTG(s),Skills Plateau,Independent w/HEP, Independently Progressing Evaluation Billing Untimed Code Treatment Minutes 30 PT Eval No Charge No Complexity Low Certification Information Initial Certification Date 03/06/24 Ending Certification Date 06/04/24 Provider Signature Required Yes Provider Signature Shows Agreement With POC & Medical Necessity Physician NPI Number Write NPI# Here Physician Comment/Change : Physician Signature & Date Requested Please Sign/Date Here
== END 2024-10-20 23:59 | disposition home or self-care (01) ==
PROVIDERS: PCP Internal Medicine; Visit Provider Orthopaedic Surgery Sports Medicine
DX: Z48.89 Encounter for other specified surgical aftercare (principal); R29.898 Other symptoms and signs involving the musculoskeletal system; Z51.89 Encounter for other specified aftercare
CPT/HCPCS: 97110; 97140; 97161

== ENCOUNTER 2024-10-27 07:40 | Outpatient (CLI) | payer MEDICARE, BC, SELFPAY | END 2024-10-27 07:41 | disposition home or self-care (01) | LOC: NFLDREF 11-03 18:58 | PROVIDERS: PCP Internal Medicine; Referring Provider Internal Medicine; Visit Provider Internal Medicine | DX: E78.5 Hyperlipidemia, unspecified (principal); E11.9 Type 2 diabetes mellitus without complications; I10 Essential (primary) hypertension; R53.83 Other fatigue; Z12.5 Encounter for screening for malignant neoplasm of prostate | CPT/HCPCS: 80053; 80061; G0103 ==

== ENCOUNTER 2025-01-19 14:30 | Outpatient (CLI) | payer MEDICARE, BC, SELFPAY ==
[2025-01-19 15:38] VITALS: BP 122/74; PULSE 89; RESP 16
--- NOTE | 2025-01-19 15:55 | P.STN_ITS ---
Stress Test Note Date Date of test: 01/19/25 Providers Primary care provider: Basilio Aguirre Stress test physician: Azael Reynolds Stress Test Note Stress test ordered: Stress Echo Indication for test: Shortness of breath Results discussion: This pleasant gentleman presents for the above test after discussion the risks benefits and side effects he would like to proceed, cardiac stress test medical history form is reviewed in detail. Pretest EKG shows a ventricular rate of 82, he is in sinus rhythm, with a prolonged NE interval characteristic of a 1st degree block. No significant ST wave changes standard Lavelle protocol is employed over a time course of 3 minutes 20 seconds, he achieved a metabolic equivalent of 4.8 Mets with a maximum heart rate was 135 which is 114% of the maximum maximum blood pressure is 144/90. During this test there is no specific ST wave changes suggestive of ischemia there is no dysrhythmias test is t erminated, because of overall weakness, and safety on the treadmill Impression: Negative electrographic portion of stress echo, subjectively negative, Follow up suggested: Await echo images, patient did have some deconditioning but given his age, this may be normal. If further testing is needed, or this test is equivocal on the echo portion a Lexiscan would be suggested. Patient left this testing facility in good condition.
== END 2025-01-19 15:41 | disposition home or self-care (01) ==
PROVIDERS: PCP Internal Medicine; Visit Provider Internal Medicine
DX: R06.00 Dyspnea, unspecified (principal)
CPT/HCPCS: 93016; 93325; 93351